=== PATIENT | female | born 1980 | race Caucasian/White ===

== ENCOUNTER → 2019-09-04 | Outpatient (REF) | payer BC ==
[~2019-09-04] MED LIST: B Complex PO; CLON-412 PO; CYMB1CAP5 OR; FLEXARIL OR; FLEXERIL; FLEXERIL PO; HCG OR; HYDR4TAB OR; HYDROCODONE PO; LICORICE ROOT PO; METH1TAB40 OR; METH750T OR; MULTIVIT OR; Meloxicam OR; ONDA-1; PAXI20TA OR; PERC5TAB8 OR; Probiotic PO; RELPAX PO; RESCUE REMEDY PO; SAVELLA PO; THERGRAN; TIZA4TAB; TIZA4TAB OR; VICO5TAB; VICO5TAB OR; ZANA2CAP OR; [UNRECOGNIZED DRUG - OTHER] PO; [UNRECOGNIZED DRUG - OTHER] PO; [UNRECOGNIZED DRUG - OTHER] PO; tumeric PO
== END ==
LOC: M LAB REF 15:58
PROVIDERS: ATTEND Physician Assistant
DX: J02.9 Acute pharyngitis, unspecified (principal)

== ENCOUNTER → 2021-10-23 | Outpatient (REF) | payer OTHER ==
[2021-10-23 12:50] LABS: APPEARANCE, URINE CLOUDY (CLEAR); BACTERIA, URINE AUTO 1+ (NEGATIVE); BILIRUBIN, URINE AUTO NEGATIVE (NEGATIVE); BLOOD, URINE BLOOD 3+ (NEGATIVE); COLOR, URINE YELLOW (YELLOW); GLUCOSE, URINE (UA) AUTO NEGATIVE (NEGATIVE); KETONE, URINE AUTO TRACE mg/dL (NEGATIVE); LEUKOCYTE ESTERASE, URINE AUTO 3+ (NEGATIVE); MUCUS, URINE SMALL (NEGATIVE); NITRITE, URINE AUTO NEGATIVE (NEGATIVE); PROTEIN, URINE AUTO 2+ mg/dL (NEGATIVE); RBC, URINE AUTO TNTC /HPF (0-3); SPECIFIC GRAVITY URINE AUTO 1.011 (1.002-1.035); SQUAMOUS EPITHELIAL CELL UR AU 1 /HPF (0-6); UROBILINOGEN, URINE AUTO 0.2 mg/dL (0.0-2.0); WBC, URINE AUTO TNTC /HPF (0-3)
== END ==
LOC: M LAB REF 12:02
PROVIDERS: ATTEND Physician Assistant
DX: R30.0 Dysuria (principal)

== ENCOUNTER → 2022-06-15 | Outpatient (CLI) | payer OTHER | LOC: M PLAIMG 12:38 | PROVIDERS: ATTEND Nurse Practitioner Family | DX: M50.122 Cervical disc disorder at C5-C6 level with radiculopathy (principal); M50.123 Cervical disc disorder at C6-C7 level with radiculopathy; M47.22 Other spondylosis with radiculopathy, cervical region; M46.02 Spinal enthesopathy, cervical region ==

== ENCOUNTER → 2022-11-08 | Outpatient (REF) | payer OTHER ==
[2022-11-08 18:38] LABS: HEMATOCRIT 39.5 % (36.0-47.0); HEMOGLOBIN 12.8 g/dl (12.0-15.5); MEAN CORPUSCULAR HEMOGLOBIN 27.2 pg (27.0-33.0); MEAN CORPUSCULAR HGB CONC 32.4 g/dl (32.0-36.5); PLATELET COUNT, AUTOMATED 325 10^3/uL (150-450); WHITE BLOOD COUNT 7.2 10^3/uL (4.0-10.0)
[2022-11-08 19:05] LABS: ALBUMIN 4.1 G/DL (3.2-5.2); ALKALINE PHOSPHATASE 74 U/L (46-116); ALT/SGPT 19 U/L (7.0-40); AST/SGOT 18 U/L (<34); BILIRUBIN,TOTAL 0.2 MG/DL (0.3-1.2); BLOOD UREA NITROGEN 21 MG/DL (9-23); CALCIUM LEVEL 9.3 MG/DL (8.5-10.1); CARBON DIOXIDE LEVEL 24 MMOL/L (20-31); CHLORIDE LEVEL 107 MMOL/L (98-107); CHOLESTEROL LEVEL 164 MG/DL (<200); CREATININE FOR GFR 0.69 MG/DL (0.55-1.30); GLOMERULAR FILTRATION RATE > 60.0 (>58); GLUCOSE, FASTING 89 MG/DL (60-100); HDL CHOLESTEROL 54.5 MG/DL (>40); LDL CHOLESTEROL 86.5 MG/DL (<100); NON-HDL-C 109.5 MG/DL; POTASSIUM SERUM 4.9 MMOL/L (3.5-5.1); SODIUM LEVEL 136 MMOL/L (136-145); THYROID PEROXIDASE ANTIBODY < 28.0 U/ML (<60.0); THYROID STIMULATING HORMONE 2.059 uIU/ML (0.55-4.78); TRIGLYCERIDES LEVEL 115 MG/DL (<150)
[2022-11-08 19:06] LABS: ESTRADIOL 69.9 PG/ML; FREE T3 3.1 PG/ML (2.3-4.2)
[2022-11-08 19:07] LABS: TOTAL 25(OH) VITAMIN D 34.6 NG/ML (20.0-100.0); VITAMIN B12 LEVEL 604 PG/ML (211-911)
[2022-11-08 19:08] LABS: TESTOSTERONE 23 NG/DL (14-76)
[2022-11-09 14:19] LABS: THYROXINE (T4) 8.6 UG/DL (4.5-10.9)
== END ==
LOC: M LABDRAWC 17:48
PROVIDERS: ATTEND Specialist
DX: G47.00 Insomnia, unspecified (principal); R53.83 Other fatigue; N95.9 Unspecified menopausal and perimenopausal disorder; E55.9 Vitamin D deficiency, unspecified; D51.0 Vitamin B12 deficiency anemia due to intrinsic factor deficiency

== ENCOUNTER → 2023-11-04 | Outpatient (REF) | payer OTHER ==
[2023-11-04 18:43] LABS: FOLLICLE STIMULATING HORMONE 6.3 mIU/ML
== END ==
LOC: M LABDRAWC 16:32
PROVIDERS: ATTEND Specialist
DX: R53.83 Other fatigue (principal); N95.8 Other specified menopausal and perimenopausal disorders; E34.9 Endocrine disorder, unspecified; F41.8 Other specified anxiety disorders

== ENCOUNTER → 2024-07-18 | Outpatient (REF) | payer OTHER ==
[2024-07-18 11:58] LABS: BASO % 0.4 % (0.0-1.0); EOS # 0.2 10^3/uL (0.0-0.5); EOS % 2.1 % (0.0-3.0); HEMATOCRIT 37.4 % (36.0-47.0); HEMOGLOBIN 11.5 g/dl (12.0-15.5); IRON (FE) 26 UG/DL (50-170); LYMPH % 25.4 % (24.0-44.0); MEAN CORPUSCULAR HEMOGLOBIN 24.3 pg (27.0-33.0); MEAN CORPUSCULAR HGB CONC 30.7 g/dl (32.0-36.5); MEAN CORPUSCULAR VOLUME 78.9 fl (80.0-96.0); MONO # 0.6 10^3/uL (0.0-0.8); MONO % 7.6 % (2.0-8.0); NEUTROPHILS % 64.1 % (36.0-66.0); PERCENT SATURATION 5.7 % (13.2-45.0); PLATELET COUNT, AUTOMATED 329 10^3/uL (150-450); RED BLOOD COUNT 4.74 10^6/uL (4.00-5.40); TOTAL IRON BINDING CAPACITY 457 UG/DL (250-425); WHITE BLOOD COUNT 7.8 10^3/uL (4.0-10.0)
[2024-07-18 11:59] LABS: ALBUMIN 3.9 G/DL (3.2-5.2); ALKALINE PHOSPHATASE 71 U/L (35-104); ALT/SGPT 20 U/L (7.0-40); AST/SGOT 17 U/L (<34); BILIRUBIN,TOTAL 0.2 MG/DL (0.3-1.2); BLOOD UREA NITROGEN 16 MG/DL (9-23); CALCIUM LEVEL 9.2 MG/DL (8.5-10.1); CARBON DIOXIDE LEVEL 27 MMOL/L (20-31); CHLORIDE LEVEL 110 MMOL/L (98-107); CHOLESTEROL LEVEL 175 MG/DL (<200); CHOLESTEROL RISK RATIO 3.43 (<5); CREATININE FOR GFR 0.66 MG/DL (0.55-1.30); GLOMERULAR FILTRATION RATE > 60.0 (>58); GLUCOSE, FASTING 96 MG/DL (60-100); HDL CHOLESTEROL 50.9 MG/DL (>40); LDL CHOLESTEROL 92.1 MG/DL (<100); NON-HDL-C 124.1 MG/DL; POTASSIUM SERUM 4.8 MMOL/L (3.5-5.1); SODIUM LEVEL 140 MMOL/L (136-145); TOTAL PROTEIN 7.2 G/DL (5.7-8.2); TRIGLYCERIDES LEVEL 160 MG/DL (<150)
[2024-07-18 12:00] LABS: THYROID STIMULATING HORMONE 2.424 uIU/ML (0.55-4.78); TOTAL 25(OH) VITAMIN D 25.7 NG/ML (20.0-100.0); VITAMIN B12 LEVEL 747 PG/ML (211-911)
[2024-07-18 12:01] LABS: FREE T4 1.13 NG/DL (0.89-1.76)
[2024-07-18 13:12] LABS: HEMOGLOBIN A1c 5.1 % (4.0-6.0)
== END ==
LOC: M SFHCCLAY 09:02
PROVIDERS: ATTEND Nurse Practitioner Family
DX: Z68.41 Body mass index [BMI] 40.0-44.9, adult (principal); Z13.1 Encounter for screening for diabetes mellitus; R63.8 Other symptoms and signs concerning food and fluid intake; K90.41 Non-celiac gluten sensitivity; R53.83 Other fatigue